=== PATIENT | male | born 1945 | race Caucasian/White ===

== ENCOUNTER 2020-10-11 07:05 | Day surgery (SDC) | payer MEDICARE, OTHER ==
[2020-10-07 13:46] VITALS: BMI 28.0
[2020-10-11] MEDS ORDERED: Lidocaine 1% MPF 2 ML VIAL ONE (08:08)
[2020-10-11] MEDS ORDERED: SUGAMMADEX SODIUM 500 MG/5 ML VIAL ONE (08:40)
[2020-10-11] MEDS ORDERED: Dexamethasone 20 MG/5 ML VIAL ONE (08:42)
[2020-10-11] MEDS ORDERED: Fentanyl 100 MCG/2 ML VIAL ONE ×2 (08:42→10:35)
[2020-10-11] MEDS ORDERED: Midazolam HCl 2 mg/2 ml Vial ONE (08:42)
[2020-10-11] MEDS ORDERED: Rocuronium Bromide 10 MG/ML (10ML VIAL) ONE (08:42)
[2020-10-11] MEDS ORDERED: Ondansetron PF 4 MG/2 ML Vial ONE (08:42)
[2020-10-11] MEDS ORDERED: PROPOFOL 20 ML ONE (08:42)
[2020-10-11] MEDS ORDERED: CEFAZOLIN 1 GM VIAL ONE (08:57)
[2020-10-11] MEDS ORDERED: ePHEDrine 50 MG/ML VIAL ONE (09:14)
[2020-10-11] MEDS ORDERED: Glycopyrrolate 0.2 MG/ML 5 ML SYRINGE ONE (09:40)
[2020-10-11] MEDS ORDERED: HYDROcodone/Acetaminophen 5/325 mg Tablet ONE (11:34)
== END 2020-10-11 12:20 | disposition home or self-care (01) ==
LOC: CSHSDC 07:05
PROVIDERS: ATTEND Otolaryngology Otolaryngic Allergy
PROC: 0CBM8ZX Excision of Pharynx, Via Natural or Artificial Opening Endoscopic, Diagnostic (ICD-10-PCS; principal; 2020-10-11)
DX: C09.9 Malignant neoplasm of tonsil, unspecified (principal)
CPT/HCPCS: 88305; 88331; 88342; 93005; 93010; J0690; J1100; J2250; J2405; J2704; J3010; J3490